=== PATIENT | female | born 1950 | race Caucasian/White ===

== ENCOUNTER 2023-09-21 17:48 | Emergency (ER) | payer MEDICARE, OTHER, SELFPAY ==
[2023-09-21 17:51] VITALS: BP 126/71
[2023-09-21 17:55] VITALS: BP 126/71
[2023-09-21 17:59] VITALS: BMI 26.4
[2023-09-21 18:00] VITALS: BP 114/68
--- NOTE | 2023-09-21 18:35 | ED.GENMED ---
History of Present Illness
General
Chief Complaint: Anxiety
Source: patient
Exam Limitations: none
Time Seen by Provider: 09/21/23 17:55
Travel History
Have you had any contact with someone who has COVID-19?: No
Do you have any symptoms of coronavirus? Fever > 100 degrees, chills, cough, shortness of breath, sore throat, loss of taste or smell, muscle aches, or headache?: No
History of Present Illness
History of Present Illness:
This is a 73 year old female that comes in with c/o Panic attack and depression. Patient states that this started a year ago when she was taken off her Xanax which she was taking for 32 years. States that they weened her down and put her on Klonopin
and Prozac. States that she does see a Psychiatrist but she does not trust him. States that about 9 months ago her sone gave up on her and her younger son she hasn't seen since July. States that she just can't cope. Denies any suicidal thoughts
at this time but states that she has them last week. States that she was also recently seen at [facility]. States that she has had some nausea and just feels off balance. Denies any fever, chills, chest pain, SOB, abd pain, vomiting, diarrhea,
headache, dizziness, urinary burning.
Past History
Past History
ED Past Medical History: Psychiatric (Depression. Panic disorder) and Other (IBS, Fracture left foot)
ED Past Surgical History: (X2)
Social History
Tobacco: Non-smoker
Alcohol: None
Personal:
Living: alone
Review of Systems
Review of Systems
All Other Systems: ROS reviewed and negative except as documented in HPI and ROS
Constitutional: Reports no symptoms; Denies fever or chills
EENT: Reports no symptoms
Respiratory: Reports no symptoms; Denies cough or trouble breathing
Cardiac: Reports no symptoms; Denies chest pain
ABD/GI: Reports nausea; Denies abdominal pain, vomiting or diarrhea
: Reports no symptoms; Denies dysuria, frequency or urgency
Musculoskeletal: Reports no symptoms
Skin: Reports no symptoms
Neurological: Reports other (Just feels off balanced); Denies dizzy or headache
Psychiatric: Reports depression (States that she just can't cope)
Phy Exam
General Physical Exam
General Presentation: no apparent distress
General age: appears stated age
General Skin: warm and dry
General Habitus: elderly
General Mental: alert
General Hydration: appears well hydrated
ENT Exam
ENT Exam: TM's normal, pharynx normal and neck supple
Eye Exam
Eye Exam: EOMI
Cardiovascular Exam
Cardiovascular Exam: regular rate/rhythm, no edema, no murmur and normal peripheral pulses
Pulmonary Exam
Pulmonary Exam: lungs clear, no respiratory distress, no rales, chest non tender, no crackles, no rhonchi, no wheezing and no cough
Gastrointestinal Exam
Gastrointestinal Exam: normal bowel sounds, non tender, soft, no organomegaly, no pulsatile mass and non distended
Musculoskeletal Exam
Musculoskeletal Exam: no edema and other (walking boat left foot due to fractures)
Skin Exam
Skin Exam: normal color, warm/dry, no rash and no petechia
Psychiatric Exam
Psychiatric Exam: normal mood/affect
Course
Orders/Labs/Results
Orders:
Orders
09/21/23 18:33
Crisis Consult Urgent
Reason for Consult: Depression. state that she can't cope
09/21/23 19:06
Alcohol Urgent
COVID-19 Antigen Urgent
Source: Nasal Swab
Complete Blood Count/With Diff Urgent
Comprehensive Metabolic Panel Urgent
Urinalysis Reflex To Culture Urgent
Date Specimen was Collected: 09/21/23
Time Specimen was Collected: 18:52
Urine Microscopic Reflex Cult Urgent
Urine Culture Urgent
DANYA Source: U
Specimen Description:
Date Specimen was Collected: 09/21/23
Time Specimen was Collected: 18:52
Abnormal Lab Results
09/21/23
19:06
Absolute Monos (auto) 0.9 H 10^3/uL
(0.1-0.6)
Lymphocytes % 17.9 L %
(20.5-51.1)
Monocytes % 10.5 H %
(1.7-9.3)
Chloride 110 H mmol/L
(98-107)
ALT 42 H U/L
(0-35)
Alkaline Phosphatase 170 H U/L
(38-126)
Leukocyte Esterase Rfl 1+ A
(Negative)
Urine WBC (Reflex) 16-20 A /HPF
(0-5)
Urine Bacteria (Reflex) Few A
(Negative)
09/21/23 19:06
09/21/23 19:06
Chloride slightly elevated. ALT mildly elevated. Alk phos elevation. Urine questionable for infection. Would wait for culture to treat
Vital Signs
Initial and Last Documented VS:
Initial Vital Signs
Temp Pulse Resp BP Pulse Ox
99.4 F 84 18 126/71 95
09/21/23 17:51 09/21/23 17:51 09/21/23 17:51 09/21/23 17:51 09/21/23 17:51
Last Documented Vital Signs
Temp Pulse Resp BP Pulse Ox
99.4 F 87 16 119/71 94
09/21/23 17:51 09/21/23 20:15 09/21/23 20:15 09/21/23 19:00 09/21/23 18:30
MDM/Problems Addressed
Differential Diagnosis Includes:
Depression, Panic disorder
MDM/Problems Addressed:
This is a 73 year old female that comes in with c/o panic attack. States that this all started when they took her off her Xanax that she had been on for 32 years and weened her down and placed her on Klonopin and Prozac. States that this was a year
ago and know her son will have nothing to do with her and her younger son she has not seen since July. States that she just can't cope. Patient was also seen at [facility] a few days ago and patient was discharged and was told that she did not
need inpatient placement. Denies any suicidal thoughts.
Will check labs and have Crisis see patient.
Back into see patient. Patient was seen by Crisis and does not meet Criteria for inpatient. Patient state that she doesn't want to be alone. Explaind that this is not a reason for inpatient therapy and that she will need to follow up with her
Psychiatrist. Patient to return with any concerns.
Chronic conditions affecting care: Psychiatric illness
Acute Exacerbation and/or Progression of Chronic Illness: Psychiatric illness
*Pulse Oximetry
Patient hypoxic: no
*EKG
Interpreted by ED Provider?: NA
Rate: EKG- N/A
*Forest Technician Interpretation
Rate: Forest Technician- N/A
*Critical Care Note
Total Time (30-74mins, 75-104mins- exclusive of procedures): Not Applicable
ED Attending Note
-
Portions of this chart may have been created with voice recognition software.� Occasional wrong word or��sound alike� substitutions may have occurred due to the inherent limitations of voice recognition software.
Discharge Plan
Departure
Patient Disposition: Home (Routine Discharge)
Date of Disposition: 09/21/23
Time of Disposition: 21:06
Patient with high blood pressure during this ER visit?: No
Condition: Good
Covid-19: Not Applicable
Discharge Problem:
Depression, Panic attack
Instructions: Depression, Adult (DC), Panic Disorder (DC)
Referrals:
NONE,* [Family Provider] -
Activity Restrictions/Additional Instructions:
As discussed, you have been seen by Crisis. You do not meet criteria for inpatient therapy. You will need to see your Psychiatrist for further evaluation and if you need any medication changes. IF YOU HAVE ANY OTHER CONCERNS PLEASE RETURN TO THE
EMERGENCY ROOM.
Interventions
Interventions:
*Risk Screen - Suicide Last Done: 09/21/23 17:51
*General Assessment Last Done: 09/21/23 17:51
*Neglect/Abuse Screening Last Done: 09/21/23 17:51
ED-Psychological Assessment Last Done: 09/21/23 18:00
[2023-09-21 19:00] VITALS: BP 119/71
[2023-09-21 19:25] LABS: % Basophils 0.3 % (0-2); % Eosinophils 1.8 % (0-6); % Immature Granulocytes 0.3 % (0-0.5); % Lymphocytes 17.9 % (20.5-51.1); % Monocytes 10.5 % (1.7-9.3); % Neutrophils 69.2 % (42.2-75.2); Absolute Eosinophils 0.2 10^3/uL (0-0.7); Absolute Lymphocytes 1.6 10^3/uL (1.2-3.4); Absolute Monocytes 0.9 10^3/uL (0.1-0.6); Absolute Neutrophils 6.2 10^3/uL (1.4-6.5); Hematocrit 37.6 % (37.0-47.0); Hemoglobin 12.7 g/dL (12.0-16.0); Mean Corp Hgb Conc. 33.8 g/dL (33.0-37.0); Mean Corpuscular Hgb 29.1 pg (27.0-31.0); Mean Corpuscular Volume 86.2 fL (81.0-99.0); Mean Platelet Volume 9.2 fL (7.4-10.4); Nucleated Red Blood Cells % 0 %; Platelet Count 276 10^3/uL (130-400); Red Blood Cell Count 4.36 10^6/uL (4.20-5.40); Red Cell Dist. Width 13.2 % (11.5-14.5); White Blood Cell Count 8.9 10^3/uL (4.8-10.8)
[2023-09-21 19:44] LABS: COVID-19 Antigen Negative (Negative)
[2023-09-21 19:45] LABS: ALT (SGPT) 42 U/L (0-35); AST (SGOT) 33 U/L (14-36); Albumin 3.7 g/dl (3.5-5.0); Alkaline Phosphatase 170 U/L (38-126); Blood Urea Nitrogen 13 mg/dl (7-17); Calcium 9.3 mg/dl (8.4-10.2); Carbon Dioxide 26 mmol/L (22-30); Chloride 110 mmol/L (98-107); Estimated Creatinine Clearance 40 ml/min; Glucose 98 mg/dl (70-99); Potassium 4.1 mmol/L (3.5-5.1); Sodium 139 mmol/L (135-145); Total Bilirubin 0.4 mg/dl (0.2-1.3); Total Protein 6.4 g/dl (6.3-8.2); eGFR 59.49
[2023-09-21 19:46] LABS: Alcohol None Detected
[2023-09-21 20:41] LABS: Urine Albumin Negative (Neg - Trace); Urine Bilirubin Negative (Negative); Urine Character Clear (Clear); Urine Color Yellow; Urine Glucose Negative (Negative); Urine Ketone Negative (Negative); Urine Leukocyte 1+ (Negative); Urine Nitrite Negative (Negative); Urine Occult Blood Negative (Negative); Urine Urobilinogen Negative (Neg - 1+)
[2023-09-21 21:00] LABS: Urine Squamous Cell 0-2 /LPF (Few)
[2023-09-21 21:01] LABS: Urine Bacteria Few (Negative); Urine Red Blood Cell 0-2 /HPF (0-2); Urine White Cell 16-20 /HPF (0-5)
[2023-09-22 00:21] VITALS: BP 122/68
== END 2023-09-22 00:26 | disposition home or self-care (01) ==
LOC: EMR 17:48
PROVIDERS: Clinical Nurse Specialist Family Health; EMERGENCY PHYSICIAN Student in an Organized Health Care Education/Training Program
DX: F32.A Depression, unspecified (principal); F41.0 Panic disorder [episodic paroxysmal anxiety]; R11.0 Nausea; Z11.52 Encounter for screening for COVID-19; K58.9 Irritable bowel syndrome, unspecified; Z88.2 Allergy status to sulfonamides; Z91.030 Bee allergy status; Z88.0 Allergy status to penicillin; Z91.013 Allergy to seafood
CPT/HCPCS: 99283; 80053; 81003; 81015; 82077; 85025; 87086; 87811